=== PATIENT | male | born 1975 | race Caucasian/White ===

== ENCOUNTER 2017-04-04 09:19 | Emergency (ER) | payer OTHER ==
[2017-04-04 11:40] VITALS: BP 138/86
== END 2017-04-04 11:38 | disposition home or self-care (01) ==
LOC: ED 09:19
DX: S51.841A Puncture wound with foreign body of right forearm, initial encounter (principal); W34.09XA Accidental discharge from other specified firearms, initial encounter; Y93.89 Activity, other specified; Y99.8 Other external cause status; Y92.89 Other specified places as the place of occurrence of the external cause
CPT/HCPCS: J2001; Q0092